=== PATIENT | female | born 1995 | race Caucasian/White ===

== ENCOUNTER 2018-05-27 07:32 | Inpatient (IN) | payer OTHER ==
[~2018-05-27] VITALS: Ht 167.6 cm; Wt 84.4 kg
[2018-05-27] MEDS ORDERED: ACETAMINOPHEN 500 MG TABLET PO ONE (08:00)
[2018-05-27] MEDS ORDERED: SODIUM CHLORIDE 0.9% 1,000ML IVBOLUS ONE (08:00)
[2018-05-27] MEDS ORDERED: ACETAMINOPHEN 500 MG TABLET ONE (08:02)
[2018-05-27 08:27] LABS: CULTURE INDICATED? YES; MICROSCOPIC INDICATED
[2018-05-27 08:30] LABS: BASOPHILS # (AUTO) 0.01 x10^3/uL (0-0.1); BASOPHILS % (AUTO) 0 % (0-1); EOSINOPHILS # (AUTO) 0.06 x10^3/uL (0-0.4); EOSINOPHILS % (AUTO) 0 % (1-7); LYMPHOCYTES # (AUTO) 0.94 x10^3/uL (1-3.4); LYMPHOCYTES % (AUTO) 6 % (22-44); MD NO; MEAN CORPUSCULAR HGB CONC 33.4 g/dL (32.4-35.8); MEAN CORPUSCULAR VOLUME 89.8 fL (80-100); MEAN PLATELET VOLUME 8.5 fL (7.4-10.4); MONOCYTES # (AUTO) 0.24 x10^3/uL (0.2-0.8); MONOCYTES % (AUTO) 2 % (2-9); NEUTROPHILS # (AUTO) 14.73 x10^3/uL (1.8-6.8); NEUTROPHILS % (AUTO) 92 % (42-75); PLATELET COUNT 164 x10^3/uL (130-400); RED BLOOD COUNT 3.86 x10^6/uL (3.82-5.3); RED CELL DISTRIBUTION WIDTH 13.2 % (9.6-15.2)
[2018-05-27] MEDS ORDERED: ONDANSETRON ODT 4 MG PO ONE (08:30)
[2018-05-27 08:42] LABS: ALANINE AMINOTRANSFERASE 71 U/L (12-78); ALBUMIN 3.3 g/dL (3.4-5.0); ANION GAP 10 mmol/L (5-15); CALCIUM 8.7 mg/dL (8.5-10.1); CHLORIDE 108 mmol/L (98-107); CREATININE 0.76 mg/dL (0.55-1.02)
[2018-05-27 08:47] LABS: ALKALINE PHOSPHATASE 76 U/L (45-117); BILIRUBIN,TOTAL 0.9 mg/dL (0.2-1.0); TOTAL PROTEIN 7.3 g/dL (6.4-8.2)
[2018-05-27] MEDS ORDERED: CEFTRIAXONE PMX 1GM/50ML 50 ML ONE (09:17)
[2018-05-27] MEDS ORDERED: CEFTRIAXONE 1,000 MG in SODIUM CHLORIDE 0.9% 50 ML IV ONE (09:30)
[2018-05-27] MEDS ORDERED: BISACODYL 10 MG SUPP PR PRN (10:00)
[2018-05-27] MEDS ORDERED: DOCUSATE 100 MG CAPSULE PO PRN (10:00)
[2018-05-27] MEDS: ENOXAPARIN 40 MG/0.4 ML SQ SCH (10:00)
[2018-05-27 10:54] VITALS: BP 107/66
[2018-05-27] MEDS: SODIUM CHLORIDE 0.9% 1,000 ML IV SCH ×2 (11:23→23:18)
[2018-05-27] MEDS: KETOROLAC 30 MG/1 ML IVPush PRN ×2 (12:26→18:50)
[2018-05-27 14:00] VITALS: BP 127/73
[2018-05-27] MEDS: ONDANSETRON ODT 4 MG PO PRN ×2 (15:10→20:18)
[2018-05-27] MEDS: ACETAMINOPHEN 325 MG TABLET PO PRN ×2 (15:17→20:18)
[2018-05-27 20:10] VITALS: BP 129/78
[2018-05-27] MEDS: ONDANSETRON 2MG/ML, 2ML IVPush PRN (23:42)
[2018-05-28] MEDS: METOCLOPRAMIDE 5 MG/ML, 2ML IVPush PRN ×2 (00:54→23:10)
[2018-05-28] MEDS: KETOROLAC 30 MG/1 ML IVPush PRN ×4 (00:54→18:38)
[2018-05-28] MEDS: ACETAMINOPHEN 325 MG TABLET PO PRN ×5 (00:54→21:51)
[2018-05-28 01:01] VITALS: BP 117/67
[2018-05-28 04:59] LABS: ANION GAP 7 mmol/L (5-15); CALCIUM 8.2 mg/dL (8.5-10.1); CHLORIDE 110 mmol/L (98-107); MEAN CORPUSCULAR HEMOGLOBIN 30.8 pg (27.0-34.8); MEAN CORPUSCULAR HGB CONC 33.9 g/dL (32.4-35.8); MEAN CORPUSCULAR VOLUME 90.8 fL (80-100); MEAN PLATELET VOLUME 8.8 fL (7.4-10.4); PLATELET COUNT 153 x10^3/uL (130-400); RED BLOOD COUNT 3.48 x10^6/uL (3.82-5.3)
[2018-05-28 05:00] LABS: CREATININE 0.85 mg/dL (0.55-1.02)
[2018-05-28 05:45] LABS: BASOPHILS # (AUTO) 0.01 x10^3/uL (0-0.1); BASOPHILS % (AUTO) 0 % (0-1); EOSINOPHILS % (AUTO) 0 % (1-7); LYMPHOCYTES # (AUTO) 1.45 x10^3/uL (1-3.4); LYMPHOCYTES % (AUTO) 7 % (22-44); MD SCAN; MONOCYTES # (AUTO) 2.04 x10^3/uL (0.2-0.8); MONOCYTES % (AUTO) 10 % (2-9); NEUTROPHILS % (AUTO) 83 % (42-75)
[2018-05-28] MEDS: ONDANSETRON 2MG/ML, 2ML IVPush PRN ×2 (05:54→17:00)
[2018-05-28 08:00] VITALS: BP 133/85
[2018-05-28] MEDS: SENNA/DOCUSATE TABLET PO SCH (09:00)
[2018-05-28] MEDS: SODIUM CHLORIDE 0.9% 1,000 ML IV SCH ×2 (09:32→20:21)
[2018-05-28] MEDS: ENOXAPARIN 40 MG/0.4 ML SQ SCH (09:32)
[2018-05-28] MEDS: CEFTRIAXONE 1,000 MG in SODIUM CHLORIDE 0.9% 50 ML IV SCH (09:32)
[2018-05-28] MEDS: ONDANSETRON ODT 4 MG PO PRN (11:10)
[2018-05-28] MEDS ORDERED: LORazepam 2 MG/ML, 1ML IVPush ONE (12:00)
[2018-05-28 13:05] VITALS: BP 120/75
[2018-05-28 19:15] VITALS: BP 119/73
[2018-05-29] MEDS: ONDANSETRON 2MG/ML, 2ML IVPush PRN (02:18)
[2018-05-29] MEDS: ACETAMINOPHEN 325 MG TABLET PO PRN ×3 (02:54→17:45)
[2018-05-29 03:16] VITALS: BP 117/73
[2018-05-29 04:45] LABS: MEAN CORPUSCULAR HGB CONC 34.1 g/dL (32.4-35.8); MEAN CORPUSCULAR VOLUME 90.7 fL (80-100); MEAN PLATELET VOLUME 8.7 fL (7.4-10.4); PLATELET COUNT 148 x10^3/uL (130-400); RED BLOOD COUNT 3.08 x10^6/uL (3.82-5.3); RED CELL DISTRIBUTION WIDTH 13.3 % (9.6-15.2)
[2018-05-29 04:47] LABS: CHLORIDE 111 mmol/L (98-107)
[2018-05-29 04:53] LABS: ALANINE AMINOTRANSFERASE 34 U/L (12-78); ALBUMIN 2.5 g/dL (3.4-5.0); ALKALINE PHOSPHATASE 57 U/L (45-117); ANION GAP 9 mmol/L (5-15); BILIRUBIN,TOTAL 0.9 mg/dL (0.2-1.0); CALCIUM 7.9 mg/dL (8.5-10.1); CREATININE 0.64 mg/dL (0.55-1.02); TOTAL PROTEIN 6.2 g/dL (6.4-8.2)
[2018-05-29 05:09] LABS: BASOPHILS # (AUTO) 0.02 x10^3/uL (0-0.1); BASOPHILS % (AUTO) 0 % (0-1); EOSINOPHILS # (AUTO) 0.02 x10^3/uL (0-0.4); EOSINOPHILS % (AUTO) 0 % (1-7); LYMPHOCYTES # (AUTO) 1.46 x10^3/uL (1-3.4); LYMPHOCYTES % (AUTO) 9 % (22-44); MD SCAN; MONOCYTES # (AUTO) 1.66 x10^3/uL (0.2-0.8); MONOCYTES % (AUTO) 10 % (2-9); NEUTROPHILS # (AUTO) 13.71 x10^3/uL (1.8-6.8); NEUTROPHILS % (AUTO) 81 % (42-75)
[2018-05-29] MEDS: SODIUM CHLORIDE 0.9% 1,000 ML IV SCH (05:30)
[2018-05-29 07:22] VITALS: BP 113/75
[2018-05-29] MEDS: SENNA/DOCUSATE TABLET PO SCH (08:46)
[2018-05-29] MEDS: CEFTRIAXONE 1,000 MG in SODIUM CHLORIDE 0.9% 50 ML IV SCH (08:47)
[2018-05-29] MEDS: ENOXAPARIN 40 MG/0.4 ML SQ SCH (08:47)
[2018-05-29] MEDS: ONDANSETRON ODT 4 MG PO PRN (11:29)
[2018-05-29 14:00] VITALS: BP 124/78
[2018-05-29 20:02] VITALS: BP 122/75
[2018-05-30 03:32] VITALS: BP 117/76
[2018-05-30 04:29] LABS: BASOPHILS # (AUTO) 0.09 x10^3/uL (0-0.1); BASOPHILS % (AUTO) 1 % (0-1); EOSINOPHILS % (AUTO) 1 % (1-7); LYMPHOCYTES # (AUTO) 2.07 x10^3/uL (1-3.4); LYMPHOCYTES % (AUTO) 17 % (22-44); MD NO; MEAN CORPUSCULAR HEMOGLOBIN 30.7 pg (27.0-34.8); MEAN CORPUSCULAR VOLUME 90.3 fL (80-100); MEAN PLATELET VOLUME 8.3 fL (7.4-10.4); MONOCYTES % (AUTO) 9 % (2-9); NEUTROPHILS % (AUTO) 73 % (42-75); PLATELET COUNT 189 x10^3/uL (130-400); RED BLOOD COUNT 3.24 x10^6/uL (3.82-5.3); RED CELL DISTRIBUTION WIDTH 13.8 % (9.6-15.2)
[2018-05-30] MEDS ORDERED: CEFD300C37 PO (07:31)
[2018-05-30 07:34] VITALS: BP 130/86
[2018-05-30] MEDS: CEFTRIAXONE 1,000 MG in SODIUM CHLORIDE 0.9% 50 ML IV SCH (08:31)
[2018-05-30] MEDS: SENNA/DOCUSATE TABLET PO SCH (08:31)
[2018-05-30] MEDS: ENOXAPARIN 40 MG/0.4 ML SQ SCH (08:31)
[2018-05-30] MEDS ORDERED: SODIUM CHLORIDE 0.9% 1,000 ML IV SCH (10:00)
== END 2018-05-30 09:52 | disposition home or self-care (01) | DRG 872 ==
LOC: ED 08:54 → EDIP 09:22 → 3NW 10:48 → DCLOUNGE 05-30 09:41
PROVIDERS: ADMIT Internal Medicine; ATTEND Internal Medicine
DX: A41.9 Sepsis, unspecified organism (principal); N30.00 Acute cystitis without hematuria; N10 Acute pyelonephritis; R11.2 Nausea with vomiting, unspecified; Z87.891 Personal history of nicotine dependence
CPT/HCPCS: 36415; 71045; 80048; 80053; 81001; 83605; 83690; 84145; 84703; 85025; 87040; 87077; 87086; 87186; 93005; 96361; 96365; J0696; J1650; J1885; J2405; Q0162; J2060; J2765; J7030